=== PATIENT | male | born 1975 | race Caucasian/White ===

== ENCOUNTER 2017-08-08 15:06 | Emergency (ER) | payer SELFPAY ==
--- NOTE | 2017-08-08 15:17 | ED Physician Documentation ---
Upper Respiratory Symptoms - HISTORIAN Historian: patient - HPI Stated Complaint: cough Chief Complaint: Fever Onset: days ago (5) Duration: constant Context: same sx ( in car for 3 days ). denies: recent foreign travel Associated Symptoms: fever, chills, sweating, sinus pain, productive cough Worsened by Deep Breath: Yes Further Comments: yes - ROS CONST/EYES: denies: weakness, eye redness, eye itching CVS/RESP: denies: chest pain, shortness of breath LYMPH: denies: rash GI/: none NEURO/PSYCH: denies: fainting, dizziness, confusion MS/SKIN: joint pain, muscle aches. denies: rash - PAST HX Lung Disease: other (smoker ) PE Risk Factors: none Surgeries/Procedures: none Immunizations: UTD Allergies/Adverse Reactions: Allergies Allergy/AdvReac Type Severity Reaction Status Date / Time No Known Allergies Allergy Unverified 08/08/17 15:24 Home Medications: Ambulatory Orders Medication Instructions Recorded NK [NK] 08/08/17 - SOCIAL HX Smoking History: cigarettes Alcohol Use: occasionally Drug Use: marijuana - FAMILY HX Family History: none - VITAL SIGNS Vital Signs: Vital Signs Temp Pulse Resp BP Pulse Ox 99.5 F 78 18 124/93 97 08/08/17 15:10 08/08/17 15:10 08/08/17 15:10 08/08/17 15:10 08/08/17 15:10 - REVIEWED ASSESSMENTS Nursing Assessment Reviewed: Yes Vitals Reviewed: Yes Progress - Progress Progress: 1625: discussion about lab results. He has no history of hepatitis although he reports he is a heavy drinker. He has had fever, cough and fatigue for 5 days. he is here in [place] visiting. He is aware that the labs need to be rechecked within the week. DG ED Results Lab/Radiology - Lab Results Lab Results: Lab Results 08/08/17 08/08/17 15:44 15:44 WBC 3.00 K/ul L K/ul (4.00-12.00) RBC 5.20 M/ul M/ul (3.90-5.20) Hgb 17.2 g/dL g/dL (12.0-18.0) Hct 47.4 % % (37.0-53.0) MCV 91.2 fl fl (80.0-100.0) MCH 33.1 pg pg (28.0-34.0) MCHC 36.3 g/dL H g/dL (30.0-36.0) RDW 12.6 % % (11.3-14.3) Plt Count 101 K/mm3 L K/mm3 (130-400) Sodium 137 mmol/L mmol/L (136-145) Potassium 3.4 mmol/L L mmol/L (3.5-5.1) Chloride 100 mmol/L mmol/L (98-107) Carbon Dioxide 25 mmol/L mmol/L (22-30) BUN 10 mg/dL mg/dL (9-20) Creatinine 0.80 mg/dL mg/dL (0.66-1.25) Estimated Creat Clear 105 Est GFR ( Amer) > 60 (60 - ) Est GFR (Non-Af Amer) > 60 (60 - ) Glucose 98 mg/dL mg/dL (74-106) Calcium 8.7 mg/dL mg/dL (8.4-10.2) Total Bilirubin 0.9 mg/dL mg/dL (0.2-1.3) AST 381 U/L H U/L (15-46) ALT 379 U/L H U/L (13-69) Alkaline Phosphatase 75 U/L U/L (38-126) Total Protein 6.8 g/dL g/dL (6.3-8.2) Albumin 4.1 g/dL g/dL (3.5-5.0) - Radiology Radiology Impressions: 2 views the chest Clinical history: Cough Findings: The heart size is normal. The pulmonary vasculature is normal. No pleural effusion, pneumothorax or alveolar consolidation is identified. Impression: negative Electronically signed on Aug 08, 2017 4:14:00 PM DAIRY LAB TECHNICIAN by: Milton Cody - Orders Orders: ED Orders Category Date Time Status CHEST 2VIEW [RAD] Stat Exams 08/08/17 Ordered CBC/PLATELET/DIFF Stat Lab 08/08/17 15:44 Completed CMP Stat Lab 08/08/17 15:44 Completed Ipratropium/Albuterol Sulfate [Duoneb] Med 08/08/17 15:29 Discontinued 3 ml NEB NOW ONE Upper Respiratory Symptoms - EXAM General Appearance: no acute distress, alert EENT: eyes nml inspection, nml ENT inspection, pharynx nml. No: TM erythema Respiratory: no resp. distress, wheezes Abdomen: non-tender, no organomegaly, nml bowel sounds, no distention CVS: reg rate & rhythm, heart sounds normal, equal pulses, no murmur Skin: color nml, no rash, warm,dry Extremities: non-tender, normal range of motion, no evidence of injury, no edema Neuro/Psych: oriented x3, neuro intact, mood/affect nml Discharge Clincal Impression: Viral illness Referrals: Primary Doctor,No [Primary Care Provider] - 2 Days Additional Instructions: 1. ProAir 2 puffs every 4-6 hours as needed for cough 2. Medrol Dose pack 4 mg pack - take as directed 3. Tessalon Pearls 100 mg Take 1 by mouth every 8 hours as needed for cough 4. Tylenol or Ibuprofen as needed for fever or pain 5. Increase fluids 6. Follow up with a Dr this week for lab repeat and work up of elevated liver enzymes and WBC and PLT level 7. Return to ER for any concerns or bleeding Condition: Stable Decision to Admit: NO Date of Decison to Admit: 08/08/17 Decision Time: 16:30
[2017-08-08] MEDS: IPRATROPIUM/ALBUTEROL SULFATE 3 ML AMPUL.NEB NEB ONE (15:38)
[2017-08-08 16:10] LABS: eGFR (African) > 60; eGFR (Non-African) > 60
[2017-08-08 16:15] LABS: MEAN CORPUSCULAR HEMOGLOBIN 33.1 pg (28.0-34.0); MEAN CORPUSCULAR VOLUME 91.2 fl (80.0-100.0)
--- NOTE | 2017-08-08 16:28 | Diagnostic Imaging Report ---
EDUARDO DO [facility] [id number] [facility] [address] [id number] Report Submission Date: Aug 08, 2017 4:14:00 PM BENCH MOLDER APPRENTICE Patient Study Name: CADE WEI Date: Aug 08, 2017 3:58:35 PM BENCH MOLDER APPRENTICE Modality Type: DX Gender: M Description: CHEST : 75 Institution: [facility] Physician: EDUARDO DO 2 views the chest Clinical history: Cough Findings: The heart size is normal. The pulmonary vasculature is normal. No pleural effusion, pneumothorax or alveolar consolidation is identified. Impression: negative Electronically signed on Aug 08, 2017 4:14:00 PM BENCH MOLDER APPRENTICE by: Milton KATZ
[2017-08-08 16:36] VITALS: BP 124/89
[2017-08-09 07:57] LABS: BASOPHILS % 0 % (0-2); EOSINOPHILS % 0 % (0-7); MONOCYTES % 8 % (0-11); SEGMENTED NEUTROPHILS % 38 % (39-79)
[2017-08-09 07:58] LABS: ACANTHOCYTES 1+ (NEGATIVE); PLT EST. EST. AGREES W/PLT CT
== END 2017-08-08 16:34 ==
LOC: ED 15:06
DX: B34.8 Other viral infections of unspecified site (principal); R05 Cough
CPT/HCPCS: 71046; 80053; 85025; 94640; 99283